=== PATIENT | female | born 1975 | race Caucasian/White ===

== ENCOUNTER 2018-01-16 15:30 | Emergency (ER) | payer OTHER ==
[~2018-01-16] VITALS: Ht 167.6 cm; Wt 109.0 kg
[~2018-01-16 15:30] MED LIST: FOLI800T12 PO; OMEP20TA PO; Z.0.BCPILL PO
[2018-01-16 15:34] VITALS: BP 154/109; PULSE 123; RESP 20; TEMP 99.3; O2SAT 95
[2018-01-16] MEDS ORDERED: OMEP20TA93 PO (15:47)
[2018-01-16] MEDS ORDERED: LEXA20TA PO (15:47)
--- NOTE | 2018-01-16 15:48 | PD ---
HPI Chief Complaint: Headache Time Seen by Provider: 15:42 Travel History International Travel<30 days: No Contact w/Intl Traveler<30days: No Traveled to known affect area: No History of Present Illness HPI Patient has a heavy family history of aneurysms and rupture aneurysms with subsequent deaths in her family. These include brothers sisters parents extended family as well. Patient has been having a right-sided headache starts in the back and radiates towards the front, patient has no changes in her vision , no fever, no nausea vomiting or diarrhea. Currently the pain is at a 6 out of 10, and is described as a shooting sharp pain. PCP is Dr. Suarez No known drug allergy Past medical history significant for GERD, hysterectomy PFSH Past Medical History Cancer: No Cardiovascular Problems: No Diabetes: No Endocrine: No Genitourinary: No Hepatitis: No Hiatal Hernia: No Immune Disorder: No Musculoskeletal: No Neurologic: No Psychiatric: No Reproductive: Yes Respiratory: No Thyroid Disease: No ?: Not Past Surgical History Hysterectomy: Yes Joint Replacement: No Pacemaker: No Social History Tobacco Use: No Allergies-Medications (Allergen,Severity, Reaction): Coded Allergies: No Known Allergies (Unverified Adverse Reaction, Unknown, 01/16/18) Reported Meds & Prescriptions Reported Meds & Active Scripts Active Reported Omeprazole 20 Mg Tab 20 Mg PO DAILY Lexapro (Escitalopram Oxalate) 20 Mg Tab 20 Mg PO DAILY Review of Systems General / Constitutional: No: Fever Eyes: No: Visual changes HENT: Positive: Headaches Cardiovascular: No: Chest Pain or Discomfort Respiratory: No: Shortness of Breath Gastrointestinal: No: Abdominal Pain Genitourinary: No: Dysuria Musculoskeletal: No: Pain Skin: No Rash Neurologic: No: Weakness Psychiatric: No: Depression Endocrine: No: Polydipsia Hematologic/Lymphatic: No: Easy Bruising Physical Exam Narrative GENERAL: SKIN: Warm and dry. HEAD: Atraumatic. Normocephalic. EYES: Pupils equal and round. No scleral icterus. No injection or drainage. ENT: No nasal bleeding or discharge. Mucous membranes pink and moist. NECK: Trachea midline. No JVD. CARDIOVASCULAR: Regular rate and rhythm. RESPIRATORY: No accessory muscle use. Clear to auscultation. Breath sounds equal bilaterally. GASTROINTESTINAL: Abdomen soft, non-tender, nondistended. MUSCULOSKELETAL: Extremities without clubbing, cyanosis, or edema. No obvious deformities. NEUROLOGICAL: Awake and alert. No obvious cranial nerve deficits. Motor grossly within normal limits. Five out of 5 muscle strength in the arms and legs. Normal speech. PSYCHIATRIC: Appropriate mood and affect; insight and judgment normal. Data Data Last Documented VS Vital Signs Date Time Temp Pulse Resp B/P (MAP) Pulse Ox O2 Delivery O2 Flow Rate FiO2 01/16/18 18:07 98 16 134/86 (102) 94 Room Air 01/16/18 15:[address] Brain W/O Iv Contrast(Rout) (01/16/18 15:54) Ecg Monitoring (01/16/18 15:54) Iv Access Insert/Monitor (01/16/18 15:54) Oximetry (01/16/18 15:54) Ondansetron Inj (Zofran Inj) (01/16/18 16:00) Morphine Inj (Morphine Inj) (01/16/18 16:00) Mra Brain W/O Contrast (Cow) (01/16/18 15:58) Ketorolac Inj (Toradol Inj) (01/16/18 18:15) Morphine Inj (Morphine Inj) (01/16/18 18:15) Metoclopramide Inj (Reglan Inj) (01/16/18 18:15) MDM Medical Decision Making Medical Screen Exam Complete: Yes Emergency Medical Condition: Yes Medical Record Reviewed: Yes Differential Diagnosis Tension headache versus cluster headache versus intracranial hemorrhage versus sinusitis versus aneurysm Narrative Course CT head is negative for any intracranial hemorrhage MRI is negative for any aneurysm. Patient given additional dose of Toradol and Reglan, since the initial dose of morphine did not take away her pain Diagnosis Primary Impression: Cephalgia Patient Instructions: Acute Headache (ED), General Instructions Scripts Ondansetron Odt (Zofran Odt) 4 Mg Tab 4 MG SL Q8HR Y for Nausea/Vomiting, #12 TAB 0 Refills Prov: Martín Nunes MD 01/16/18 Codeine-Acetaminophen (Codeine-Acetaminophen) 30-300 mg Tab 1 TAB PO Q6HR Y for PAIN for 3 Days, #12 TAB 0 Refills Prov: Martín Nunes MD 01/16/18 Disposition: 01 DISCHARGE HOME Condition: Stable Martín Nunes MD Jan 16, 2018 15:48
[2018-01-16] MEDS ORDERED: MORPHINE SULFATE 8 MG/ML INJ IV PUSH ONE (16:00)
[2018-01-16] MEDS ORDERED: ONDANSETRON HCL 4 MG/2 ML VIAL IVP ONE (16:00)
[2018-01-16 16:18] VITALS: O2SAT 97
--- NOTE | 2018-01-16 17:03 | RADRPT ---
EXAM DATE/TIME: 01/16/2018 16:33 [facility] COMPARISON: No previous studies available for comparison. INDICATIONS : Cephalgia. RADIATION DOSE: 52.87 CTDIvol (mGy) MEDICAL HISTORY : None SURGICAL HISTORY : Hysterectomy. ENCOUNTER: Initial ACUITY: 1 day PAIN SCALE: 6/10 LOCATION: cranial TECHNIQUE: Multiple contiguous axial images were obtained of the head. Using automated exposure control and adj ustment of the mA and/or kV according to patient size, radiation dose was kept as low as reasonably a chievable to obtain optimal diagnostic quality images. DICOM format image data is available electro nically for review and comparison. FINDINGS: CEREBRUM: The ventricles are normal for age. No evidence of midline shift, mass lesion, hemorrhage or acute in farction. No extra-axial fluid collections are seen. POSTERIOR FOSSA: The cerebellum and brainstem are intact. The 4th ventricle is midline. The cerebellopontine angle i s unremarkable. EXTRACRANIAL: The visualized portion of the orbits is intact. SKULL: The calvaria is intact. No evidence of skull fracture. CONCLUSION: Normal examination. Austin Moe MD on January 16, 2018 at 17:01 Board Certified Radiologist. This report was verified electronically.
--- NOTE | 2018-01-16 18:00 | RADRPT ---
EXAM DATE/TIME: 01/16/2018 17:29 [facility] COMPARISON: CT BRAIN W/O CONTRAST, January 16, 2018, 16:33. INDICATIONS : Cephalgia. Right head pain. MEDICAL HISTORY : None. SURGICAL HISTORY : Hysterectomy. ENCOUNTER: Initial ACUITY: 1 day PAIN SCORE: 5/10 LOCATION: cranial Please note a normal MRA of the brain does not entirely exclude the possibility of a small aneurysm, nor the possibility of distal intracranial vessel disease. TECHNIQUE: 3D time of flight MRA was performed. Source images, multiplanar STS MIP, and 3D volume MIP reconstru ctions were reviewed. FINDINGS: There is excellent visualization of the major intracranial arteries out to the second-order branch ve ssels. There is no evidence for aneurysm, vessel truncation or stenosis, and no evidence for vascula r malformation. CONCLUSION: Intracranial arteries are normal. Albert Salmon MD on January 16, 2018 at 17:57 Board Certified Radiologist. This report was verified electronically.
[2018-01-16 18:07] VITALS: BP 134/86; PULSE 98; RESP 16; O2SAT 94
[2018-01-16] MEDS ORDERED: CODE30TA2 PO (18:11)
[2018-01-16] MEDS ORDERED: ZOFR4TAB3 SL (18:11)
[2018-01-16] MEDS ORDERED: MORPHINE SULFATE 4 MG/ML INJ IV PUSH ONE (18:15)
[2018-01-16] MEDS ORDERED: KETOROLAC TROMETHAMINE 30 MG/ML (IVP) VIAL IV PUSH ONE (18:15)
[2018-01-16] MEDS ORDERED: METOCLOPRAMIDE HCL 10 MG/2 ML VIAL IV PUSH ONE (18:15)
== END 2018-01-16 18:32 | disposition home or self-care (01) ==
LOC: PHEFT 15:30
DX: R51 Headache (principal)
CPT/HCPCS: 70450; 70544; 96374; 96375; 99284; J1885; J2270; J2405; J2765